=== PATIENT | female | born 1930 | race Caucasian/White ===

== ENCOUNTER → 2017-01-24 | Outpatient (CLI) | payer MEDICARE ==
[~2017-01-24] VITALS: Ht 157.5 cm; Wt 65.8 kg
[~2017-01-24] MED LIST: ACCUPRIL20 MG PO; ADULT LOW DOSE81 MG PO; ANTIVERT 25MG T25 MG PO; ATORVASTATIN CA20 MG PO; ATROVENT INH S2.5 ML INH; BRILINTA 90 MG90 MG PO; BUMEX 1MG TABLET1 MG PO; BUSPAR 5MG TABLE5 MG PO; CALCIUM 600 +1 EACH PO; CARVEDILOL3.125 MG PO; CEFDINIR300 MG PO; CELEXA10 MG PO; CLARITIN 10MG T10 MG PO; FENOFIBRATE134 MG PO; FISH OIL 1,0001 EAC1 PO; FLAX OIL1000 MG PO; FLONASE 0.05% N16 GM; IBUPROFEN600 MG PO; IMDUR ER TAB 6060 MG PO; IPRAT-ALBUT 0.5-3 ML INH; KLOR-CON M2020 MEQ PO; LASIX40 MG PO; LEVAQUIN250 MG PO; MEDROL DOSEPAK 24 MG PO; MIRALAX PACK 171 PKT PO; MONTELUKAST SOD10 MG PO; NEOMYCIN-POLY-7.5 ML OU; NEURONTIN 300300 MG PO; NIACIN ER500 MG PO; NITROFURANTOIN100 MG PO; NITROSTAT 0.4100 TAB SL; OMEPRAZOLE20 MG PO; PROTONIX 40 MG40 M1 PO; SIMVASTATIN40 MG PO; SYMBICORT 16010.2 GM INH; TESSALON PERLE100 MG PO; TOPROL XL100 MG PO; TRAMADOL HCL50 MG PO; VALIUM 10 MG TA10 MG PO; VENTOLIN HFA 66.7 GM INH; VITAMIN D2000 UNIT PO; XARELTO10 MG PO; ZYLOPRIM 100 M100 MG PO
== END ==
LOC: OPSV 10:00
DX: E87.6 Hypokalemia (principal)
CPT/HCPCS: 36415; 84132; 96365; 96366; J3480; J7030

== ENCOUNTER → 2017-01-25 | Outpatient (CLI) | payer MEDICARE ==
[~2017-01-25] VITALS: Ht 157.5 cm; Wt 65.8 kg
== END ==
LOC: OPSV 10:46
DX: E87.6 Hypokalemia (principal)
CPT/HCPCS: 36415; 84132; 96365; 96366; J3480; J7030

== ENCOUNTER 2017-03-09 17:48 | Inpatient (IN) | payer MEDICARE ==
[~2017-03-09] VITALS: Ht 157.5 cm; Wt 68.9 kg
[~2017-03-09 17:48] MED LIST changes: -LEVAQUIN250 MG PO; -NITROFURANTOIN100 MG PO
[2017-03-09 20:28] LABS: HEMOGLOBIN 8.6 gm/dl (12.3-15.3); RED BLOOD COUNT 3.4 M/UL (4.00-5.10); WHITE BLOOD COUNT 5.2 K/UL (4.5-11.0)
[2017-03-09 20:51] LABS: BUN/CREATININE RATIO 29 (0-10)
[2017-03-10] MEDS ORDERED: NITROFURANTOIN100 MG PO (03:57)
[2017-03-10 07:23] LABS: HEMOGLOBIN 8.4 gm/dl (12.3-15.3); RED BLOOD COUNT 3.31 M/UL (4.00-5.10)
[2017-03-10 07:28] LABS: WHITE BLOOD COUNT 3.7 K/UL (4.5-11.0)
[2017-03-10 07:40] LABS: BUN/CREATININE RATIO 32 (0-10)
[2017-03-11 07:20] LABS: HEMOGLOBIN 8.6 gm/dl (12.3-15.3); RED BLOOD COUNT 3.36 M/UL (4.00-5.10); WHITE BLOOD COUNT 4.2 K/UL (4.5-11.0)
[2017-03-11 07:37] LABS: BUN/CREATININE RATIO 33 (0-10)
[2017-03-12 06:29] LABS: HEMOGLOBIN 8.9 gm/dl (12.3-15.3); RED BLOOD COUNT 3.52 M/UL (4.00-5.10)
[2017-03-12 06:52] LABS: BUN/CREATININE RATIO 38 (0-10)
[2017-03-12] MEDS ORDERED: LEVAQUIN250 MG PO (15:38)
== END 2017-03-12 16:10 | disposition home or self-care (01) | DRG 292 ==
LOC: MED SURG 4 17:48
PROVIDERS: ADMIT Emergency Medicine
DX: I11.0 Hypertensive heart disease with heart failure (principal); J44.0 Chronic obstructive pulmonary disease with (acute) lower respiratory infection; J44.1 Chronic obstructive pulmonary disease with (acute) exacerbation; I50.43 Acute on chronic combined systolic (congestive) and diastolic (congestive) heart failure; Z87.891 Personal history of nicotine dependence; D50.9 Iron deficiency anemia, unspecified; E78.5 Hyperlipidemia, unspecified; Z88.0 Allergy status to penicillin; Z88.2 Allergy status to sulfonamides; J20.9 Acute bronchitis, unspecified; Z95.0 Presence of cardiac pacemaker; J98.09 Other diseases of bronchus, not elsewhere classified; D69.6 Thrombocytopenia, unspecified; I48.91 Unspecified atrial fibrillation; I42.9 Cardiomyopathy, unspecified
CPT/HCPCS: ECHO; 36415; 71020; 80048; 82272; 82550; 82553; 83880; 84484; 85027; 93005; 93306; 94640; 94664; J0456; J1756; J1940; J1956; J2920; J7050

== ENCOUNTER 2017-04-17 19:39 | Emergency (ER) | payer MEDICARE ==
[~2017-04-17 19:39] MED LIST changes: +LEVAQUIN250 MG PO; +NITROFURANTOIN100 MG PO
[2017-04-17 20:34] LABS: HEMOGLOBIN 8.6 gm/dl (12.3-15.3); RED BLOOD COUNT 3.27 M/UL (4.00-5.10); WHITE BLOOD COUNT 7.4 K/UL (4.5-11.0)
[2017-04-18 09:13] LABS: ACINETOBACTER BAUMANNII Not Detected (Negative); CANDIDA ALBICANS Not Detected (Negative); CANDIDA KRUSEI Not Detected (Negative); CANDIDA TROPICALIS Not Detected (Negative); ENTEROCOCCUS Not Detected (Negative); HAEMOPHILUS INFLUENZAE Not Detected (Negative); KLEBSIELLA OXYTOCA Not Detected (Negative); KLEBSIELLA PNEUMONIAE Not Detected (Negative); KPC-CARBAPENEM-RESISTANCE GENE Not Detected (Negative); PROTEUS Not Detected (Negative); PSEUDOMONAS AERUGINOSA Not Detected (Negative); SERRATIA MARCESANS Not Detected (Negative); STAPHYLOCOCCUS Not Detected (Negative); STAPHYLOCOCCUS AUREUS Not Detected (Negative); STREP AGALACTIAE (GROUP B) Not Detected (Negative); STREP PYOGENES (GROUP A) Not Detected (Negative); STREPTOCOCCUS Not Detected (Negative); mecA (METHICILLIN RESIST GENE Not Detected (Negative); vanA/B (VANCOMYCIN RESIST GENE Not Detected (Negative)
[2017-04-18 10:30] LABS: ESCHERICHIA COLI DETECTED (Negative)
== END 2017-04-18 00:40 | disposition left against medical advice (07) ==
LOC: ER1 19:39
PROVIDERS: Emergency Medicine
DX: J44.1 Chronic obstructive pulmonary disease with (acute) exacerbation (principal); J40 Bronchitis, not specified as acute or chronic; N39.0 Urinary tract infection, site not specified; I25.10 Atherosclerotic heart disease of native coronary artery without angina pectoris; Z88.0 Allergy status to penicillin; Z88.5 Allergy status to narcotic agent; Z88.2 Allergy status to sulfonamides; Z95.1 Presence of aortocoronary bypass graft
CPT/HCPCS: 36415; 71020; 80053; 81001; 83605; 83690; 83880; 84484; 85025; 85610; 85730; 87040; 87077; 87086; 87150; 87186; 94640; 94664; 96365; 96375; 99284; J0696; J2930; J7050